=== PATIENT | female | born 1940 | race Two or more races ===

== ENCOUNTER 2018-02-06 07:51 | Day surgery (SDC) | payer OTHER ==
[~2018-02-06 07:51] MED LIST: ACTICAL SOFTGEL1 CAP; ALTACE2.5 MG; ASPIRIN81 M1; CHLORTALIDONE PO; CLONAZEPAM1 MG PO; CRESTOR10 MG; CRESTOR10 MG PO; DOCUSATE SODIU100 MG PO; ELIQUIS5 MG PO; FISH OIL PO; HYDROCHLOROTHIA25 MG; NEURONTIN PO; PERCOCET 5/3251 TAB PO; SINGULAIR10 MG PO; VIT C-ROSE HIP500 MG PO; [UNRECOGNIZED DRUG - CODE] PO
[2018-02-06] MEDS ORDERED: MACROBID 100 M100 MG PO (13:13)
[2018-02-06] MEDS ORDERED: ULTRACET PO (13:14)
== END 2018-02-06 15:40 | disposition home or self-care (01) ==
LOC: CIR.AMB 07:51 → SURH 11:30 → EDSTATUS 11:30 → CIR.AMB 11:30
DX: N81.3 Complete uterovaginal prolapse (principal)

== ENCOUNTER → 2018-07-03 | Outpatient (CLI) | payer OTHER ==
[~2018-07-03] MED LIST changes: +MACROBID 100 M100 MG PO; +ULTRACET PO
== END | disposition home or self-care (01) ==
LOC: TOM 09:30
DX: J33.8 Other polyp of sinus (principal)